=== PATIENT | female | born 1990 | race Hispanic/Latino ===

== ENCOUNTER 2019-10-24 13:16 | Emergency (ER) | payer SELFPAY ==
[2019-10-24] MEDS ORDERED: IBUPROFEN 200 MG TAB PO ONE (13:23)
[2019-10-24] MEDS ORDERED: ACETAMINOPHEN 500 MG TAB ONE (13:23)
[2019-10-24] MEDS ORDERED: NA CHLORIDE 0.9% 1,000 ML ONE ×2 (13:44→16:07)
[2019-10-24 14:57] LABS: Absolute Lymphocytes (CBC) 0.3 K/uL (0.7-4.9); Basophils % 0.2 % (0-1.3); Hematocrit 31.2 % (36.0-45.0); Lymphocytes % 2.7 % (15.3-44.8); MPV 8.3 fL (7.6-11.3); RBC Red Blood Cell Count 4.02 M/uL (3.86-4.86)
[2019-10-24 15:00] LABS: Potassium 3.4 mmol/L (3.5-5.1)
--- NOTE | 2019-10-24 15:04 | RAD REPORT ---
EXAM DESCRIPTION: CT - Head Brain Wo Cont - 10/24/2019 2:28 pm CLINICAL HISTORY: Tremors COMPARISON: None TECHNIQUE: Computed axial tomography of the head was obtained. IV contrast was not requested. All CT scans are performed using dose optimization technique as appropriate and may include automated exposure control or mA/KV adjustment according to patient size. FINDINGS: An intracranial bleed is not seen . The ventricles are normal in caliber. No extra-axial fluid collection is noted. Mild to moderate ethmoid sinusitis. IMPRESSION: No acute intracranial abnormality is seen. If patient's symptoms persist MRI of the bra in would be recommended.
[2019-10-24 15:23] LABS: Barbiturates NEGATIVE (NEGATIVE); Benzodiazepines NEGATIVE (NEGATIVE); Cocaine NEGATIVE (NEGATIVE); METHAMPHETAM NEGATIVE (NEGATIVE); Methadone NEGATIVE (NEGATIVE); Opiates NEGATIVE (NEGATIVE); Phencyclidine NEGATIVE (NEGATIVE); THC Cannibis NEGATIVE (NEGATIVE)
[2019-10-24] MEDS ORDERED: BENZTROPINE 2 MG/2 ML VIAL ONE (16:40)
[2019-10-24] MEDS ORDERED: METOPROLOL TAR 25 MG TAB ONE (16:40)
[2019-10-24 16:45] LABS: Urine Blood TRACE (NEG); Urine Glucose NEGATIVE (NEG); Urine Protein NEGATIVE (NEG); Urine Specific Gravity 1.015 (1.005-1.030); Urine pH 6.5 (5.0-7.0)
[2019-10-24 16:47] LABS: Blood Morphology Comment NOT SEEN (NOT SEEN); Platelet Estimate ADEQ; Urine White Blood Cell Casts OK
--- NOTE | 2019-10-24 17:05 | ER ---
Nurse's Notes [facility] Name: Jovita Moura Age: 29 yrs Sex: Female : 1990 Arrival Date: 10/24/2019 Time: 13:18 Bed 27 Private MD: Diagnosis: Fever, unspecified;Tachycardia, unspecified;Change in speech - stuttering Presentation: 10/24 13:20 Presenting complaint: EMS states: patient was at work today when she started to shiver mg2 and feverish. temp-104. IV fluid started. denies any complaints. 13:20 Transition of care: patient was not received from another setting of care. Onset of mg2 symptoms was October 24, 2019. Risk Assessment: Do you want to hurt yourself or someone else? Patient reports no desire to harm self or others. Initial Sepsis Screen: Does the patient meet any 2 criteria?. Care prior to arrival: None. 13:20 Method Of Arrival: EMS: [facility] mg2 13:20 Acuity: MOISES 4 mg2 13:49 Initial Sepsis Screen: Does the patient meet any 2 criteria? Temp <36.0*C (96.8*F)) or mg2 > 38.3*C (100.9*F). HR > 90 bpm. No. Patient's initial sepsis screen is negative. Does the patient have a suspected source of infection?. 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 - Social history:: Smoking status: Patient/guardian denies using tobacco, Patient/guardian denies using street drugs, IV drugs. - Ebola Screening: : No symptoms or risks identified at this time. Screenin:30 Abuse screen: Denies threats or abuse. Denies injuries from another. Nutritional mg2 screening: No deficits noted. Tuberculosis screening: No symptoms or risk factors identified. Fall Risk IV access (20 points). Assessment: 13:47 General: Appears in no apparent distress. uncomfortable, Behavior is anxious, crying. mg2 Pain: Denies pain. Neuro: Level of Consciousness is awake, alert, obeys commands, Oriented to person, place, time, situation. Cardiovascular: Capillary refill < 3 seconds Patient's skin is warm and dry. Respiratory: Airway is patent Respiratory effort is even, unlabored, Respiratory pattern is regular, symmetrical. GI: No signs and/or symptoms were reported involving the gastrointestinal system. : No signs and/or symptoms were reported regarding the genitourinary system. EENT: No signs and/or symptoms were reported regarding the EENT system. Derm: Skin is intact, is healthy with good turgor, Skin is pink, warm \T\ dry. normal. Musculoskeletal: Circulation, motion, and sensation intact. Capillary refill < 3 seconds. 14:42 Reassessment: Patient appears in no apparent distress at this time. Patient and/or mg2 family updated on plan of care and expected duration. Pain level reassessed. Patient is alert, oriented x 3, equal unlabored respirations, skin warm/dry/pink. 15:14 Reassessment: Patient appears in no apparent distress at this time. patient is sleeping mg2 now. 16:10 Reassessment: Patient appears in no apparent distress at this time. Patient and/or mg2 family updated on plan of care and expected duration. Pain level reassessed. Patient is alert, oriented x 3, equal unlabored respirations, skin warm/dry/pink. 16:21 Reassessment: patient is still slurry in speech. mg2 17:05 Reassessment: patient was advised to stay for admission but she refused because she has mg2 kids at home,. provider is well informed. 17:45 Reassessment: AMA form signed. risk explained and understood by the family. patient is mg2 still stuttering. Vital Signs: 13:29 Pulse 144; Resp 20; Temp 101.7(O); Pulse Ox 100% on R/A; Weight 79.38 kg; Height 5 ft. mg2 1 in. (154.94 cm); 13:49 BP 150 / 126; mg2 14:20 BP 110 / 64; Pulse 140; Resp 18; Temp 99.9; Pulse Ox 100% on R/A; mg2 15:14 BP 101 / 66; Pulse 128; Resp 18; Pulse Ox 98% on R/A; mg2 16:09 BP 100 / 76; Pulse 130; Resp 18; Temp 99.4(O); Pulse Ox 100% on R/A; Pain 0/10; mg2 17:46 BP 101 / 76; Pulse 110; Resp 18; Temp 99.4; Pulse Ox 100% on R/A; mg2 13:29 Body Mass Index 33.07 (79.38 kg, 154.94 cm) mg2 ED Course: 13:18 Patient arrived in ED. kb 13:18 Ruby [facility]C [facility]. kb 13:18 Peyman Leone MD is Attending Physician. kb 13:26 Best Avila, WAYLON is Primary Nurse. mg2 13:29 Triage completed. mg2 13:30 Arm band placed on. mg2 13:46 No provider procedures requiring assistance completed. Maintain EMS IV. Dressing mg2 intact. Good blood return noted. Site clean \T\ dry. Gauge \T\ site: 20 \T\ RAC. 13:48 Patient has correct armband on for positive identification. Pulse ox on. NIBP on. mg2 14:58 Urine collected: clean catch specimen. kj1 15:12 EKG done, by [facility] technician. reviewed by Ruby WALSH. at1 15:54 UDS Sent. kj1 15:55 TSH Sent. kj1 17:15 Kaiden Petty MD is Attending Physician. kb 17:47 IV discontinued, intact, bleeding controlled, No redness/swelling at site. Pressure mg2 dressing applied. Administered Medications: 13:27 Drug: Tylenol 1000 mg Route: PO; mg2 14:21 Follow up: Response: No adverse reaction; Marked relief of symptoms mg2 13:27 Drug: Ibuprofen 600 mg Route: PO; mg2 14:20 Follow up: Response: No adverse reaction mg2 14:20 Drug: NS 0.9% 1000 ml Route: IV; Rate: 1000 ml; Site: right antecubital; mg2 17:49 Follow up: Response: No adverse reaction; IV Status: Completed infusion; IV Intake: mg2 1000ml 16:09 Drug: NS 0.9% 1000 ml Route: IV; Rate: 1000 ml; Site: right antecubital; mg2 17:48 Follow up: Response: No adverse reaction; IV Status: Completed infusion; IV Intake: mg2 1000ml 16:38 Drug: COgentin 2 mg Route: IVP; Site: right antecubital; mg2 17:48 Follow up: Response: No adverse reaction mg2 16:38 Drug: Lopressor 25 mg Route: PO; mg2 17:48 Follow up: Response: No adverse reaction mg2 Intake: 17:48 IV: 1000ml; Total: 1000ml. mg2 17:49 IV: 1000ml; Total: 2000ml. mg2 Outcome: 17:47 Discharged to mg2 17:47 AMA AMA form signed 17:47 Condition: stable 17:47 Discharge instructions given to patient, family, Instructed on discharge instructions, follow up and referral plans. Demonstrated understanding of instructions, follow-up care. 17:49 Patient left the ED. mg2 Signatures: Ruby Bruno, BIOFUELS OPERATIONS MANAGER-C HAYDEN-CkAna Maria Gonzalez, front office spec EKG Tat1 Best Avila, RN RN mg2 Shayy Bruno kj1
--- NOTE | 2019-10-24 17:05 | EDPHYS ---
Physician Documentation [facility] Name: Jovita Moura Age: 29 yrs Sex: Female : 1990 Arrival Date: 10/24/2019 Time: 13:18 Bed 27 Private MD: ED Physician Kaiden Petty HPI: 10/24 13:24 This 29 yrs old Female presents to ER via Unassigned with complaints of chills.kb 13:24 The patient reports fever, that was measured at 104 degrees Fahrenheit. Onset: The kb symptoms/episode began/occurred just prior to arrival. Modifying factors: there are no obvious modifying factors. Associated signs and symptoms: Pertinent positives: chills. Severity of symptoms: At their worst the symptoms were moderate in the emergency department the symptoms are unchanged. The patient has not experienced similar symptoms in the past. The patient has not recently seen a physician. Pt reports she had chills and went to medical at work, they checked her temp and it was 104 so they brought her in. 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 - Social history:: Smoking status: Patient/guardian denies using tobacco, Patient/guardian denies using street drugs, IV drugs. - Ebola Screening: : No symptoms or risks identified at this time. ROS: 13:24 ENT: Negative for injury, pain, and discharge, Neck: Negative for injury, pain, and kb swelling, Cardiovascular: Negative for chest pain, palpitations, and edema, Respiratory: Negative for shortness of breath, cough, wheezing, and pleuritic chest pain, Abdomen/GI: Negative for abdominal pain, nausea, vomiting, diarrhea, and constipation, Back: Negative for injury and pain, : Negative for injury, bleeding, discharge, and swelling, MS/Extremity: Negative for injury and deformity, Skin: Negative for injury, rash, and discoloration, Neuro: Negative for headache, weakness, numbness, tingling, and seizure. 13:24 Constitutional: Positive for chills, fever, Negative for body aches, fatigue, malaise, poor PO intake, weight loss. Exam: 13:24 Constitutional: This is a well developed, well nourished patient who is awake, alert, kb and in no acute distress. Head/Face: Normocephalic, atraumatic. ENT: Nares patent. No nasal discharge, no septal abnormalities noted. Tympanic membranes are normal and external auditory canals are clear. Oropharynx with no redness, swelling, or masses, exudates, or evidence of obstruction, uvula midline. Mucous membranes moist. Neck: Trachea midline, no thyromegaly or masses palpated, and no cervical lymphadenopathy. Supple, full range of motion without nuchal rigidity, or vertebral point tenderness. No Meningismus. Chest/axilla: Normal chest wall appearance and motion. Nontender with no deformity. No lesions are appreciated. Cardiovascular: Regular rate and rhythm with a normal S1 and S2. No gallops, murmurs, or rubs. Normal PMI, no JVD. No pulse deficits. Respiratory: Lungs have equal breath sounds bilaterally, clear to auscultation and percussion. No rales, rhonchi or wheezes noted. No increased work of breathing, no retractions or nasal flaring. Abdomen/GI: Soft, non-tender, with normal bowel sounds. No distension or tympany. No guarding or rebound. No evidence of tenderness throughout. Back: No spinal tenderness. No costovertebral tenderness. Full range of motion. Skin: Warm, dry with normal turgor. Normal color with no rashes, no lesions, and no evidence of cellulitis. MS/ Extremity: Pulses equal, no cyanosis. Neurovascular intact. Full, normal range of motion. Neuro: Awake and alert, GCS 15, oriented to person, place, time, and situation. Cranial nerves II-XII grossly intact. Motor strength 5/5 in all extremities. Sensory grossly intact. Cerebellar exam normal. Normal gait. 14:59 ECG was reviewed by the Attending Physician. kb Vital Signs: 13:29 Pulse 144; Resp 20; Temp 101.7(O); Pulse Ox 100% on R/A; Weight 79.38 kg; Height 5 ft. mg2 1 in. (154.94 cm); 13:49 BP 150 / 126; mg2 14:20 BP 110 / 64; Pulse 140; Resp 18; Temp 99.9; Pulse Ox 100% on R/A; mg2 15:14 BP 101 / 66; Pulse 128; Resp 18; Pulse Ox 98% on R/A; mg2 16:09 BP 100 / 76; Pulse 130; Resp 18; Temp 99.4(O); Pulse Ox 100% on R/A; Pain 0/10; mg2 17:46 BP 101 / 76; Pulse 110; Resp 18; Temp 99.4; Pulse Ox 100% on R/A; mg2 13:29 Body Mass Index 33.07 (79.38 kg, 154.94 cm) mg2 MDM: 13:18 Patient medically screened. kb 13:24 Data reviewed: vital signs, nurses notes. Data interpreted: Pulse oximetry: on room air kb is 100 %. Interpretation: normal. 14:18 ED course: Temperature has decreased, pt still reports she is "freezing" with kb uncontrollable chills. Stutter noted when pt is having chills. . 16:37 ED course: Pt does not want to stay in the hospital. Wants to go home now, but will kb stay for ordered treatment. Pt states she feels fine, chills resolved. Stutter remains. 16:39 ED course: Dr Petty evaluated pt as well. Neuro exam normal except for continued kb stutter when talking. . 16:57 Counseling: I had a detailed discussion with the patient and/or guardian regarding: the kb historical points, exam findings, and any diagnostic results supporting the discharge/admit diagnosis, lab results, radiology results, the need for further work-up and treatment in the hospital. ED course: Pt educated on need to follow up with neurology. Pt will call tomorrow for appt. . 10/24 13:18 Order name: Flu kb 10/24 13:57 Order name: Influenza Screen (A ; Complete Time: 14:01 EDMS 10/24 14:12 Order name: Urine Dipstick--Ancillary (enter results) bd 10/24 14:12 Order name: Urine --Ancillary (enter results) bd 10/24 14:16 Order name: CBC with Diff kb 10/24 14:16 Order name: Basic Metabolic Panel kb 10/24 14:16 Order name: Charlotte Screen Profile kb 10/24 14:50 Order name: TSH kb 10/24 14:50 Order name: UDS kb 10/24 15:02 Order name: CBC with Automated Diff; Complete Time: 16:48 EDMS 10/24 15:02 Order name: Basic Metabolic Panel; Complete Time: 15:05 EDMS 10/24 15:02 Order name: Charlotte Screen; Complete Time: 15:05 EDMS 10/24 15:24 Order name: Urine Drug Screen; Complete Time: 15:24 EDMS 10/24 15:53 Order name: Thyroid Stimulating Hormone; Complete Time: 16:01 EDMS 10/24 14:09 Order name: Vital Signs; Complete Time: 14:19 kb 10/24 14:16 Order name: CT Head Brain wo Cont kb 10/24 14:30 Order name: EKG; Complete Time: 14:30 kb 10/24 14:30 Order name: EKG - Nurse/Tech; Complete Time: 14:43 kb 10/24 15:07 Order name: CT; Complete Time: 15:09 EDMS 10/24 16:02 Order name: Vital Signs; Complete Time: 16:08 kb 10/24 16:46 Order name: Urine --Ancillary; Complete Time: 16:48 EDMS 10/24 16:46 Order name: Urine Dipstick-Ancillary; Complete Time: 16:48 EDMS 10/24 16:48 Order name: CBC Smear Scan; Complete Time: 16:48 EDMS EC:59 Rate is 132 beats/min. Rhythm is regular, Sinus tachycardia. QRS Scott is Normal. SC kb interval is normal at 134 msec. QRS interval is normal at 78 msec. QT interval is normal at 306 msec. Administered Medications: 13:27 Drug: Tylenol 1000 mg Route: PO; mg2 14:21 Follow up: Response: No adverse reaction; Marked relief of symptoms mg2 13:27 Drug: Ibuprofen 600 mg Route: PO; mg2 14:20 Follow up: Response: No adverse reaction mg2 14:20 Drug: NS 0.9% 1000 ml Route: IV; Rate: 1000 ml; Site: right antecubital; mg2 17:49 Follow up: Response: No adverse reaction; IV Status: Completed infusion; IV Intake: mg2 1000ml 16:09 Drug: NS 0.9% 1000 ml Route: IV; Rate: 1000 ml; Site: right antecubital; mg2 17:48 Follow up: Response: No adverse reaction; IV Status: Completed infusion; IV Intake: mg2 1000ml 16:38 Drug: COgentin 2 mg Route: IVP; Site: right antecubital; mg2 17:48 Follow up: Response: No adverse reaction mg2 16:38 Drug: Lopressor 25 mg Route: PO; mg2 17:48 Follow up: Response: No adverse reaction mg2 Disposition: 21:23 Co-signature as Attending Physician, Kaiden Petty MD I agree with the assessment and wa plan of care. Disposition: 10/24/19 17:05 Patient has left against medical advice. Impression: Fever, unspecified, Tachycardia, unspecified, Change in speech - stuttering. - Patients states they are going to Home. - Condition is Stable. - Discharge Instructions: Fever, Adult, [id number]. Follow up: Emergency Department; When: As needed; Reason: Worsening of condition. Follow up: Private Physician; When: 2 - 3 days; Reason: Recheck today's complaints, Continuance of care, Re-evaluation by your physician. - Problem is new. - Symptoms are unchanged. Signatures: Dispatcher [employer] EDMS Ruby Bruno, NICO BLAKE-Kaiden Ang MD MD wa Gardose, Michele, RN RN mg2 Corrections: (The following items were deleted from the chart) 16:40 16:37 ED course: Pt does not want to stay in the hospital. Wants to go home now, but kb will stay for ordered treatment. . kb 17:06 13:24 Constitutional: This is a well developed, well nourished patient who is awake, kb alert, and in no acute distress. Head/Face: Normocephalic, atraumatic. ENT: Nares patent. No nasal discharge, no septal abnormalities noted. Tympanic membranes are normal and external auditory canals are clear. Oropharynx with no redness, swelling, or masses, exudates, or evidence of obstruction, uvula midline. Mucous membranes moist. Neck: Trachea midline, no thyromegaly or masses palpated, and no cervical lymphadenopathy. Supple, full range of motion without nuchal rigidity, or vertebral point tenderness. No Meningismus. Chest/axilla: Normal chest wall appearance and motion. Nontender with no deformity. No lesions are appreciated. Cardiovascular: Regular rate and rhythm with a normal S1 and S2. No gallops, murmurs, or rubs. Normal PMI, no JVD. No pulse deficits. Respiratory: Lungs have equal breath sounds bilaterally, clear to auscultation and percussion. No rales, rhonchi or wheezes noted. No increased work of breathing, no retractions or nasal flaring. Abdomen/GI: Soft, non-tender, with normal bowel sounds. No distension or tympany. No guarding or rebound. No evidence of tenderness throughout. Back: No spinal tenderness. No costovertebral tenderness. Full range of motion. Skin: Warm, dry with normal turgor. Normal color with no rashes, no lesions, and no evidence of cellulitis. MS/ Extremity: Pulses equal, no cyanosis. Neurovascular intact. Full, normal range of motion. Neuro: Awake and alert, GCS 15, oriented to person, place, time, and situation. Cranial nerves II-XII grossly intact. Motor strength 5/5 in all extremities. Sensory grossly intact. Cerebellar exam normal. Normal gait. kb 17:07 14:18 ED course: Temperature has decreased, pt still reports she is "freezing" with kb uncontrollable chills. . kb 17:07 16:37 ED course: Pt does not want to stay in the hospital. Wants to go home now, but kb will stay for ordered treatment. Pt states she feels fine. kb 17:49 17:05 10/24/2019 17:05 Patients has left against medical advice. Impression: Fever, mg2 unspecified; Tachycardia, unspecified; Change in speech - stuttering. Patient states they are going to Home. Condition is Stable. Follow up: Emergency Department; When: As needed; Reason: Worsening of condition. Follow up: Private Physician; When: 2 - 3 days; Reason: Recheck today's complaints, Continuance of care, Re-evaluation by your physician. Problem is new. Symptoms are unchanged. kb
[2019-10-24 17:59] VITALS: TEMP 99.4; O2SAT 100
[2019-10-24 18:00] VITALS: BP 101/76
--- NOTE | 2019-10-25 07:54 | EKG ---
Test Date: 2019-10-24 Test Time: 14:45:45 Market Gardener: NANCY MEASUREMENT RESULTS: Intervals: Rate: 132 OH: 134 QRSD: 78 QT: 306 QTc: 453 [place]lin: P: 57 OH: 134 QRS: 29 T: 33 INTERPRETIVE STATEMENTS: Sinus tachycardia Nonspecific ST abnormality Abnormal ECG No previous ECG available for comparison Electronically Signed On 10-25-19 07:53:47 COMPRESSOR STATION OPERATOR by Freedom Whittaker
== END 2019-10-24 17:49 | disposition left against medical advice (07) ==
LOC: ER 13:16
DX: R00.0 Tachycardia, unspecified (principal); R47.89 Other speech disturbances
CPT/HCPCS: 36415; 70450; 80048; 80307; 81003; 81025; 84443; 85025; 86308; 87804; 93005; 96361; 96374; 99284; J0515; J7030

== ENCOUNTER 2021-01-26 18:57 | Emergency (ER) | payer SELFPAY ==
--- OUTSIDE RECORDS SUMMARY | 2021-01-26 19:01 | XMS REPORT | Continuity of Care Document ---
:1990 Author Organization [facility] t Address [address] [place] [address] Care Team Providers Name Role Phone Belinda Harper Attending Clinician Dalila CONNORS, T Attending Clinician Unavailable Jose CONNORS Attending Clinician Unavailable Jose Luis BLAKE F Attending Clinician Tye VENTURA Attending Clinician Doctor Unassigned, Name Attending Clinician Unavailable Rony VENTURA, S Attending Clinician Problems This patient has no known problems. Allergies, Adverse Reactions, Alerts This patient has no known allergies or adverse reactions. Medications This patient has no known medications. Procedures This patient has no known procedures. Encounters Start End Encounter Admission Attending Care Care Encounter Source Date/Time Date/Time Type Type Clinicians Facility Department ID 2020-07-05 2020-07-05 Emergency Marilee Issa [facility] [id number] 19:51:00 21:36:00 Belinda Carver [id number] [place] [id number] [place] [id number] 2020-07-05 2020-07-05 CELESTE Layne [id number] 00:00:00 00:00:00 (Out) Padmini DUNCAN [id number] [facility] [id number] 2020-07-05 2020-07-05 Telephone CELESTE Garcia [id number] 00:00:00 00:00:00 Tania DAKOTA [id number] [facility] [id number] 2020-07-01 2020-07-01 [facility] [id number] 11:18:00 14:33:00 Dangelo Carver [id number] [place] [id number] [place] [id number] 2020-05-05 2020-05-05 Emergency [facility] [id number] 13:25:04 15:26:00 Julio César Carver [id number] [place] [id number] [place] [id number] 2020-05-05 2020-05-05 Orders Doctor ALONSO [id number] 00:00:00 00:00:00 Only Unassigned, DAKOTA [id number] [facility] [id number] 2020-04-23 2020-04-23 Emergency [facility] [id number] 09:05:02 10:13:00 Aamir Carver [id number] [place] [id number] [place] [id number] 2020-04-23 2020-04-23 Orders Doctor ALONSO [id number] 00:00:00 00:00:00 Only Unassigned, DAKOTA [id number] [facility] [id number] 2019-11-27 2019-11-27 Emergency [facility] [id number] 18:16:45 20:09:00 Dangelo Carver [id number] [place] [id number] [place] [id number] 2019-11-27 2019-11-27 Orders Doctor ALONSO [id number] 00:00:00 00:00:00 Only Unassigned, DAKOTA [id number] [place] [facility] [id number] Results This patient has no known results.
[2021-01-26 20:18] LABS: Absolute Lymphocytes (CBC) 2.3 K/uL (0.7-4.9); Basophils % 1.2 % (0-1.3); Hematocrit 31.3 % (36.0-45.0); RBC Red Blood Cell Count 4.05 M/uL (3.86-4.86)
[2021-01-26] MEDS ORDERED: ACETAMINOPHEN 500 MG TAB ONE (20:19)
[2021-01-26] MEDS ORDERED: BENZTROPINE 2 MG/2 ML VIAL ONE (20:19)
[2021-01-26] MEDS ORDERED: NA CHLORIDE 0.9% 0 ML ONE (20:20)
[2021-01-26] MEDS ORDERED: NA CHLORIDE 0.9% 1,000 ML ONE (20:20)
[2021-01-26 20:27] LABS: Protime INR 1.03
[2021-01-26 20:36] LABS: ALT/SGPT 22 U/L (12-78); AST/SGOT 12 U/L (15-37); Albumin 3.6 g/dL (3.4-5.0); Alkaline Phosphatase 78 U/L (45-117); BUN Blood Urea Nitrogen 13 mg/dL (7-18); Bicarbonate 25 mmol/L (21-32); Bilirubin Direct < 0.1 mg/dL (0-0.2); Bilirubin Total 0.3 mg/dL (0.2-1.0); Creatine Phosphokinase 107 U/L (26-192); Glucose Level 98 mg/dL (74-106); Phosphorus 3.1 mg/dL (2.5-4.9); Potassium 3.5 mmol/L (3.5-5.1); Protein, Total 7.8 g/dL (6.4-8.2); Sodium Level 140 mmol/L (136-145)
--- NOTE | 2021-01-26 20:41 | RAD REPORT ---
EXAM DESCRIPTION: CT - Head Brain Wo Cont - 01/26/2021 8:11 pm CLINICAL HISTORY: Headache COMPARISON: 2019 TECHNIQUE: Computed axial tomography of the head was obtained. IV contrast was not requested. All CT scans are performed using dose optimization technique as appropriate and may include automated exposure control or mA/KV adjustment according to patient size. FINDINGS: An intracranial bleed is not seen . The ventricles are normal in caliber. No extra-axial fluid collection is noted. Fluid within the sinuses/ mastoids is not seen. IMPRESSION: No acute intracranial abnormality is seen. If patient's symptoms persist MRI of the bra in would be recommended.
--- NOTE | 2021-01-26 21:23 | EDPHYS ---
Physician Documentation [facility] Name: Jovita Moura Age: 30 yrs Sex: Female : 1990 Arrival Date: 01/26/2021 Time: 18:58 Bed 5 Private MD: ED Physician Med Whitfield HPI: 01/26 20:21 This 30 yrs old Female presents to ER via Ambulatory with complaints of mh7 stutter in speech, Hand Pain - cramping. 20:24 The patient presents to the emergency department with anxiety, over unknown mh7 circumstances, Hand spasm/cramping, stuttering, crying. Onset: The symptoms/episode began/occurred this morning. Past psychiatric history: Prior diagnosis: depression, Psychiatric medications include: Wellbutrin, Primary psychiatric physician: the patient does not have a primary psychiatric physician, the patient has not had a prior suicide gesture, the patient does not have a previous inpatient psychiatric history, the patient's last psychiatric treatment was none. Associated signs and symptoms: Pertinent positives; anxiety, headache, muscle spasm/cramping, stuttering speech, Pertinent negatives: abdominal pain, chest pain, chills, delusions, depression, fever, hallucinations, homicidal ideation, nausea, night sweats, palpitations, paranoia, shortness of breath, substance abuse, suicide ideation, tremor. Severity of symptoms: At their worst the symptoms were moderate today, in the emergency department the symptoms are unchanged. The patient has experienced a previous episode, last year. The patient has been recently seen by a physician: the patient's primary care provider, 1 week(s) ago, started on Buspar for depression. Patient reports hand spasm/cramping, stuttering speech, crying, headache that started this morning. She was started on BuSpar last week for depression. She went out drinking with friends last night and started having symptoms this morning. . 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 - Social history:: Smoking status: Patient denies any tobacco usage or history of. ROS: 20:24 Constitutional: Negative for fever, chills, and weight loss, Eyes: Negative for injury, mh7 pain, redness, and discharge, ENT: Negative for injury, pain, and discharge, Neck: Negative for injury, pain, and swelling, Cardiovascular: Negative for chest pain, palpitations, and edema, Respiratory: Negative for shortness of breath, cough, wheezing, and pleuritic chest pain, Abdomen/GI: Negative for abdominal pain, nausea, vomiting, diarrhea, and constipation, Back: Negative for injury and pain, : Negative for injury, bleeding, discharge, and swelling, Skin: Negative for injury, rash, and discoloration. 20:24 Allergy/Immunology: Negative for hives, rash, and allergies, Endocrine: Negative for neck swelling, polydipsia, polyuria, polyphagia, and marked weight changes, Hematologic/Lymphatic: Negative for swollen nodes, abnormal bleeding, and unusual bruising. 20:24 Neuro: Negative for altered mental status, dizziness, gait disturbance, hearing loss, loss of consciousness, numbness, seizure activity, syncope, near syncope, tingling, tinnitus, tremor, visual changes, weakness. 20:24 Psych: Negative for depression, drug dependence, alcohol dependence, auditory hallucinations, visual hallucinations, homicidal ideation, insomnia, suicide gesture, suicidal ideation. Exam: 20:24 Head/Face: Normocephalic, atraumatic. Eyes: Pupils equal round and reactive to light, mh7 extra-ocular motions intact. Lids and lashes normal. Conjunctiva and sclera are non-icteric and not injected. Cornea within normal limits. Periorbital areas with no swelling, redness, or edema. ENT: Nares patent. No nasal discharge, no septal abnormalities noted. Tympanic membranes are normal and external auditory canals are clear. Oropharynx with no redness, swelling, or masses, exudates, or evidence of obstruction, uvula midline. Mucous membranes moist. Neck: Trachea midline, no thyromegaly or masses palpated, and no cervical lymphadenopathy. Supple, full range of motion without nuchal rigidity, or vertebral point tenderness. No Meningismus. Chest/axilla: Normal chest wall appearance and motion. Nontender with no deformity. No lesions are appreciated. Cardiovascular: Regular rate and rhythm with a normal S1 and S2. No gallops, murmurs, or rubs. Normal PMI, no JVD. No pulse deficits. Respiratory: Lungs have equal breath sounds bilaterally, clear to auscultation and percussion. No rales, rhonchi or wheezes noted. No increased work of breathing, no retractions or nasal flaring. Abdomen/GI: Soft, non-tender, with normal bowel sounds. No distension or tympany. No guarding or rebound. No evidence of tenderness throughout. Back: No spinal tenderness. No costovertebral tenderness. Full range of motion. Skin: Warm, dry with normal turgor. Normal color with no rashes, no lesions, and no evidence of cellulitis. MS/ Extremity: Pulses equal, no cyanosis. Neurovascular intact. Full, normal range of motion. 20:24 Constitutional: The patient appears in no acute distress, alert, awake, anxious. 20:24 Neuro: Orientation: is normal, Mentation: is normal, Memory: is normal, immediate memory is intact, recent memory is intact, remote memory is intact, Cranial nerves: grossly normal, Cerebellar function: is grossly normal, Motor: is normal, Sensation: is normal, Gait: not tested. Deep tendon reflexes are normal, Babinski testing is normal, seizure activity, is not displayed by the patient, Abnormal movements: there are no abnormal movements, stuttering speech. 20:24 Psych: Behavior/mood is cooperative, anxious, tearful. Affect is animated, Oriented to person, place, time, Patient has no thoughts/intents to harm self or others. Judgement / Insight is normal. Memory is normal. Delusions/hallucinations are not present. Vital Signs: 19:15 BP 104 / 80; Pulse 90; Resp 18; Temp 98.3(O); Pulse Ox 97% on R/A; Weight 74.84 kg (R); lp1 Height 5 ft. 1 in. (154.94 cm); Pain 0/10; 21:00 BP 100 / 74; Pulse 70; Resp 18; Pulse Ox 99% on R/A; em 19:15 Body Mass Index 31.18 (74.84 kg, 154.94 cm) lp1 MDM: 21:16 Differential diagnosis: drug withdrawal. depression, psychosis secondary to mh7 non-compliance, substance abuse, dystonic reaction. Data reviewed: vital signs, nurses notes, old medical records, lab test result(s), CBC, drug level(s), alcohol, electrolytes, radiologic studies, CT scan. Data interpreted: Pulse oximetry: on room air is 99 %. Interpretation: normal. Counseling: I had a detailed discussion with the patient and/or guardian regarding: the historical points, exam findings, and any diagnostic results supporting the discharge/admit diagnosis, lab results, radiology results, the need for outpatient follow up, to return to the emergency department if symptoms worsen or persist or if there are any questions or concerns that arise at home. Response to treatment: the patient's symptoms have resolved after treatment, the patient's blood pressure is in an acceptable range, mental status has returned to baseline, the patient no longer shows bradycardia, the patient is not short of breath, the patient is not tachycardic, the patient's pain is gone, the patient's temperature has normalized, the patient is now symptom free, patient is well hydrated. ED course: Well appearing, NAD, VSS, no focal neurological deficits. Patients symptoms have completely resolved. Discussed with patient regarding her medication and also to avoid drinking alcohol while taking medications. She verbalized that she understood this information as presented. She requested to be discharged from the ED. She will follow up with her doctor but return to the ED if she has any concerns.. 21:22 Patient medically screened. 01/26 19:33 Order name: CBC with Diff; Complete Time: 20:33 01/26 19:33 Order name: Basic Metabolic Panel; Complete Time: 20:50 01/26 19:33 Order name: Protime (+inr); Complete Time: 20:33 01/26 19:33 Order name: Ptt, Activated; Complete Time: 20:33 01/26 19:33 Order name: LFT's; Complete Time: 20:50 [facility] 01/26 19:33 Order name: Alcohol Level; Complete Time: 21:44 01/26 19:33 Order name: Magnesium; Complete Time: 20:50 01/26 19:33 Order name: Phosphorus; Complete Time: 20:50 01/26 19:33 Order name: CPK; Complete Time: 20:50 [facility] 01/26 19:33 Order name: CT Head Brain wo Cont; Complete Time: 20:50 mh7 Administered Medications: 20:37 Drug: COgentin (benztropine) 2 mg Route: IVP; Site: right antecubital; ea 21:10 Follow up: Response: No adverse reaction; Marked relief of symptoms em 20:38 Drug: NS 0.9% 1000 ml Route: IV; Rate: 1000 ml; Site: right antecubital; ea 21:43 Follow up: IV Status: Completed infusion; IV Intake: 1000ml em 20:38 Drug: Tylenol 1000 mg Route: PO; ea 21:43 Follow up: Response: No adverse reaction em Disposition: 01/26/21 21:22 Discharged to Home. Impression: Dystonic Reaction. - Condition is Stable. - Discharge Instructions: Dystonic Reaction. - Prescriptions for Benztropine 2 mg Oral Tablet - take 1 tablet by ORAL route every 12 hours; 10 tablet. - Medication Reconciliation Form, Thank You Letter, Antibiotic Education, Prescription Opioid Use form. - Follow up: Private Physician; When: 1 - 2 days; Reason: Worsening of condition, Recheck today's complaints, Continuance of care, Re-evaluation by your physician. Follow up: James Mclaughlin MD; When: 1 - 2 days; Reason: Worsening of condition, Recheck today's complaints. - Problem is new. - Symptoms are resolved. Signatures: Dispatcher [employer] Avery Aldridge RN RN Kaylen Cruz RN RN lp1 Erica Rajput RN RN ea Holmes, Maurice, MD MD [facility] Corrections: (The following items were deleted from the chart) 21:44 19:33 Urine Dipstick-Ancillary ordered. [facility] em 21:44 19:33 Urine Test ordered. [facility] em 21:45 21:22 01/26/2021 21:22 Discharged to Home. Impression: Dystonic Reaction. Condition is em Stable. Forms are Medication Reconciliation Form, Thank You Letter, Antibiotic Education, Prescription Opioid Use. Follow up: Private Physician; When: 1 - 2 days; Reason: Worsening of condition, Recheck today's complaints, Continuance of care, Re-evaluation by your physician. Follow up: James Mclaughlin; When: 1 - 2 days; Reason: Worsening of condition, Recheck today's complaints. Problem is new. Symptoms are resolved. mh7
--- NOTE | 2021-01-26 21:23 | ER ---
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 19:15 Coronavirus screen: Client denies travel out of the [place] in the last 14 days. At this lp1 time, the client does not indicate any symptoms associated with coronavirus-19. Ebola Screen: No symptoms or risks identified at this time. Initial Sepsis Screen: Does the patient meet any 2 criteria? No. Patient's initial sepsis screen is negative. Does the patient have a suspected source of infection? No. Patient's initial sepsis screen is negative. Risk Assessment: Do you want to hurt yourself or someone else? Patient reports no desire to harm self or others. Onset of symptoms was January 26, 2021. 19:15 Method Of Arrival: Ambulatory lp1 19:15 Acuity: MOISES 3 lp1 19:20 Note Patient reports ETOH ingestion last night, vomited x4 this morning; recent began lp1 taking Wellbutrin and Buspar last week. 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 - Social history:: Smoking status: Patient denies any tobacco usage or history of. Screenin:34 Abuse screen: Denies threats or abuse. Nutritional screening: No deficits noted. ea Tuberculosis screening: No symptoms or risk factors identified. Fall Risk None identified. Assessment: 20:00 General: Appears in no apparent distress. uncomfortable, Behavior is calm, cooperative, em anxious. Pain: Complains of pain in headache Pain currently is 8 out of 10 on a pain scale. Neuro: Level of Consciousness is awake, alert, obeys commands, Oriented to person, place, time, situation, Speech stuttering noted, reports its happened in the past. Cardiovascular: Capillary refill < 3 seconds Patient's skin is warm and dry. Respiratory: Airway is patent Respiratory effort is even, unlabored, Respiratory pattern is regular, symmetrical. Derm: Skin is intact, is healthy with good turgor, Skin is pink, warm \T\ dry. Musculoskeletal: Capillary refill < 3 seconds, Range of motion: intact in all extremities. 21:00 Reassessment: speech has improved, less stuttering noted. em 21:10 Reassessment: Patient appears in no apparent distress at this time. Patient and/or em family updated on plan of care and expected duration. Pain level reassessed. Patient is alert, oriented x 3, equal unlabored respirations, skin warm/dry/pink. Vital Signs: 19:15 BP 104 / 80; Pulse 90; Resp 18; Temp 98.3(O); Pulse Ox 97% on R/A; Weight 74.84 kg (R); lp1 Height 5 ft. 1 in. (154.94 cm); Pain 0/10; 21:00 BP 100 / 74; Pulse 70; Resp 18; Pulse Ox 99% on R/A; em 19:15 Body Mass Index 31.18 (74.84 kg, 154.94 cm) lp1 ED Course: 18:58 Patient arrived in ED. am2 19:10 Med Whitfield MD is Attending Physician. [facility] 19:18 Erica Rajput, WAYLON is Primary Nurse. ea 19:34 Arm band placed on right wrist. Patient placed in an exam room, on a stretcher, on ea pulse oximetry. 19:34 Patient has correct armband on for positive identification. Bed in low position. Call ea light in reach. 19:38 Triage completed. lp1 20:05 Initial lab(s) drawn, by me, sent to lab. Inserted saline lock: 20 gauge in right em antecubital area, using aseptic technique. 20:11 CT Head Brain wo Cont In Process Unspecified. EDMS 21:21 James Mclaughlin MD is Referral Physician. [facility] 21:44 No provider procedures requiring assistance completed. IV discontinued, intact, em bleeding controlled, No redness/swelling at site. Pressure dressing applied. Administered Medications: 20:37 Drug: COgentin (benztropine) 2 mg Route: IVP; Site: right antecubital; ea 21:10 Follow up: Response: No adverse reaction; Marked relief of symptoms em 20:38 Drug: NS 0.9% 1000 ml Route: IV; Rate: 1000 ml; Site: right antecubital; ea 21:43 Follow up: IV Status: Completed infusion; IV Intake: 1000ml em 20:38 Drug: Tylenol 1000 mg Route: PO; ea 21:43 Follow up: Response: No adverse reaction em Intake: 21:43 IV: 1000ml; Total: 1000ml. em Outcome: 21:22 Discharge ordered by Babak 21:44 Discharged to home ambulatory. em 21:44 Condition: improved 21:44 Discharge instructions given to patient, Instructed on discharge instructions, follow up and referral plans. medication usage, Demonstrated understanding of instructions, follow-up care, medications, Prescriptions given X 1. 21:45 Patient left the ED. em Signatures: Dispatcher [employer] Avery Aldridge RN Kaylen Johnston RN RN lp1 Ana Maria Thompson Elena, RN RN ea Holmes, Maurice, MD MD 7
[2021-01-26 21:49] VITALS: TEMP 98.3
[2021-01-26 21:50] VITALS: BP 100/74; O2SAT 99
== END 2021-01-26 21:45 | disposition home or self-care (01) ==
LOC: ER 18:57
DX: G24.02 Drug induced acute dystonia (principal); F32.9 Major depressive disorder, single episode, unspecified
CPT/HCPCS: 36415; 70450; 80048; 80076; 80320; 82550; 83735; 84100; 85025; 85610; 85730; 96361; 96374; 99284; J0515; J7030